=== PATIENT | male | born 2000 | race Caucasian/White ===

== ENCOUNTER 2022-05-25 16:34 | Emergency (ER) | payer OTHER ==
[2022-05-25] MEDS ORDERED: BUPIVACAINE 0.25% PF 30 ML VIAL SUBQ STA (16:40)
--- NOTE | 2022-05-25 16:40 | ED Physician Documentation ---
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[employer] and up-to-date on tetanus cut his left palm on a sharp edge at work just prior to arrival.) Review of Systems Constitutional: reports: Reviewed and negative Cardiac: reports: Reviewed and negative Respiratory: reports: Reviewed and negative PD PAST MEDICAL HISTORY - Present Medications Home Medications: Ambulatory Orders Medication Instructions Recorded Confirmed No Known Home Medications 05/25/22 05/25/22 - Allergies Allergies/Adverse Reactions: Allergies Allergy/AdvReac Type Severity Reaction Status Date / Time No Known Drug Allergies Allergy Verified 05/25/22 16:41 PD ED PE NORMAL - Vitals Vital signs reviewed: Yes - General General: Alert and oriented X 3, No acute distress - HEENT HEENT: PERRL, EOMI - Extremities Extremities: Other (3 cm curved laceration along the thenar musculature of the palm. Distally he has intact flexor tendon strength of each digit and normal sensation.) - Neuro Neuro: Alert and oriented X 3, Normal speech Results - Vitals Vitals: Vital Signs - 24 hr 05/25/22 16:42 Temperature 37.6 C Heart Rate 108 H Respiratory 18 Rate Blood Pressure 158/96 H O2 Saturation 100 Oxygen O2 Source Room air Procedures - Laceration (location) L hand Length in cm: 3 Wound type: Curved, Into subcut fat Neurovascular status: Sensory intact, Motor intact, Vascular intact Anesthesia: Lidocaine 1%, Marcaine 0.5%, Other (I did nerve blocks of the median and radial nerve with one-to-one lidocaine and Marcaine with excellent anesthesia.) Wound preparation: Irrigated copiously NS Skin layer closure: Nylon, Interrupted, Size #-0 - enter number (4-0), Sutures - enter # (7) Other: Patient tolerated well, No complications, Neurovascular intact, Tetanus UTD Departure - Departure Disposition: 01 Home, Self Care Clinical Impression: Laceration Condition: Good Record reviewed to determine appropriate education?: Yes Instructions: ED Laceration Hand Comments: Come back for any signs of infection which would include: Redness, swelling, drainage, increased pain, or fevers. You can wash it soap and water. Keep it covered and moist with bacitracin ointment which is available over the counter; avoid neosporin. Follow-up with your physician in 14 days for suture removal. Forms: Activity restrictions
[2022-05-25] MEDS ORDERED: BUPIVACAINE 0.25% PF 10 ML VIAL SUBQ STA (16:46)
[2022-05-25] MEDS ORDERED: BUPIVACAINE 0.5% PF 30 ML VIAL ONE (17:02)
[2022-05-25] MEDS ORDERED: BACITRACIN ZINC OINT 1 PACKET TOP STA (17:09)
[2022-05-25 17:17] VITALS: BP 148/61
== END 2022-05-25 17:26 | disposition home or self-care (01) ==
LOC: ED 16:34
DX: S61.412A Laceration without foreign body of left hand, initial encounter (principal); W22.8XXA Striking against or struck by other objects, initial encounter; Y99.1 Military activity
CPT/HCPCS: 12002; 99283; A9270